=== PATIENT | female | born 1995 | race Caucasian/White ===

== ENCOUNTER 2017-09-11 15:26 | Observation (INO) | payer MEDICAID ==
[2017-09-11 15:33] VITALS: BMI 23.9
[2017-09-11 17:10] LABS: #Eosinphils 0.1 thou/uL (0.0-0.7); #Lymphocytes 3.2 thou/uL (1.20-3.40); #Monocytes 0.9 thou/uL (0.11-0.59); #Neutrophils 13.8 thou/uL (1.40-6.50); %Basophils 0.3 % (0.0-1.0); %Eosinophils 0.6 % (0.0-10.0); %Lymphocytes 17.7 % (21.0-51.0); %Monocytes 5.1 % (0.0-10.0); %Neutrophils 76.4 % (42.0-75.0); Hemoglobin 10.9 g/dL (12.0-16.0); Mean Corpuscular HGB CONC 34.4 g/dL (32.0-36.0); Mean Corpuscular Hemoglobin 31.1 pg (27.0-31.0); Mean Corpuscular Volume 90.5 fl (81.0-99.0); Mean Platelet Volume 6.7 fL (7.4-10.4); Platelet Count 321 thou/uL (130-400); Red Blood Cell (RBC) Count 3.51 mill/uL (4.20-5.40)
--- NOTE | 2017-09-11 17:28 | ULT ---
BILATERAL RENAL ULTRASOUND: Date: 09/11/17 HISTORY: 19-week patient. 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 Left flank pain. COMPARISON: None. TECHNIQUE: Sagittal and transverse imaging of the kidneys performed. FINDINGS: Right kidney has a grossly normal echotexture, without hydronephrosis. Right kidney measures 5.0 x 4. 4 x 8.5 cm. Left kidney has a normal cortical echotexture. No hydronephrosis. Left kidney measures 6.1 x 5.6 x 11 .9 cm. Urinary bladder has a normal mucosal appearance. No mucosal abnormality. Bladder volume is 22 mL. Bilateral ureteral jets are identified. IMPRESSION: No evidence of hydronephrosis. POS: [facility]
[2017-09-11] MEDS ORDERED: Lactated Ringer's 1,000 ML IV SCH ×2 (17:30)
--- NOTE | 2017-09-11 17:37 | ULT ---
OB ULTRASOUND: Date: 09/11/17 PROVIDED CLINICAL HISTORY: Size and dates. FINDINGS: A single liver intrauterine gestation is documented in breech presentation with estimated gestational age based on today's examination of 19 weeks/5 days. Estimated weight is 317, +/- 47 gm. The p lacenta is posterior in location without evidence for previa. The cervix measures about 3.0 cm. anatomic survey demonstrates a normal appearance of the head, cerebellum, posterior fossa, fou r chamber heart, stomach, situs, kidneys, umbilical cord and cord insertion, urinary bladder, spine, and upper/lower extremities. heart rate of 131 beats/minute is documented. LEONARDO is 15. Biometry: BPD: 20 weeks/1 day HC: 20 weeks/0 days AC: 20 weeks/0 days FL: 19 weeks/4 days IMPRESSION: Single live intrauterine gestation as described above. Cervical length as above. POS: [facility]
[2017-09-11 17:57] LABS: HBSAg Index 0.29 S/CO (0-0.99); HIV (1/2) Antibody/Antigen Non-Reactive (NonReactive); Hep B Surf Ag Non-Reactive S/CO (NonReactive)
[2017-09-11 18:01] LABS: Syphilis Antibody Nonreactive (Nonreactive); Syphilis Antibody Index 0.03 S/CO (<1.00 Non-Reactive)
[2017-09-11 18:18] LABS: Bilirubin Negative (Negative); Blood, Urine Moderate (Negative); Clarity CLEAR (Clear); Glucose, Urine (Dipstick) Negative (Negative); Leukocyte Negative (Negative); Nitrite Negative (Negative); Protein, Urine (Dipstick) Negative (Neg-Trace); Specific Gravity, Urine 1.013 (1.002-1.036); Urobilinogen 0.2 mg/dL (0.2-1.0); pH, Urine 6.5 (5.0-9.0)
[2017-09-11 18:20] LABS: Bacteria/HPF None Seen HPF (None Seen); Hyaline Casts/LPF 0-3 HYALINE CAST LPF (0-3 Hyaline); Pathc Cast-AUWi Flag 0.87 (0-2.49); Squamous Epithelial 0-3 HPF (0-3); WBC/HPF 0-3 HPF (0-3)
[2017-09-11 18:33] LABS: Renal Epithelial None Seen HPF (0-3); Transitional Epithelial 0-3 HPF (0-3)
[2017-09-11] MEDS ORDERED: Calcium Carbonate 500 MG ChewTAB PO PRN (20:05)
[2017-09-11] MEDS ORDERED: Acetaminophen 325 MG TAB PO PRN (20:05)
[2017-09-11] MEDS ORDERED: cefTRIAXone\\ROCEPHIN 1 GM in Sodium Chloride 0.9% 100 ML IVPB SCH (21:00)
--- NOTE | 2017-09-11 21:50 | HP ---
DATE OF ADMISSION: 09/11/2017 TIME OF ADMISSION: 1850 hours. REASON FOR ADMISSION: Suspected left nephrolithiasis at 20 weeks gestation with possible early UTI. HISTORY OF PRESENT ILLNESS: Ms. Kearns is a 21-year-old 6, para 0, AB 5 at approximately 20 weeks. She just moved to the area from [facility]. She received her antepartum care out there. She reports onset today of left lower abdominal pain. She stated it was very similar to previous k idney stone she had a little more frontal rather than flank. She denies dysuria, gross hematuria, ru pture of membranes. She has had mild nausea. She currently rates her pain an 8/10. [employer] MEMBER HISTORY: Denies history of STDs or dysplasia. She reports that she has had 5 miscarriage s. All of them in the first trimester, none with D&C, several due to abdominal trauma. PAST MEDICAL HISTORY: Recurrent nephrolithiasis bilaterally with stent, some with shock wave lithotr ipsy. 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 Cholecystectomy. Of note, the patient has not had appendectomy. ALLERGIES: TRAMADOL. MEDICATIONS: vitamins. SOCIAL HISTORY: Tobacco prior to . Denies tobacco, alcohol, or IV drug use during pregnanc y. PHYSICAL EXAMINATION: GENERAL: White female, does not appear to be in any distress that she claims with her pain score. VITAL SIGNS: Her temperature is 99.1, pulse 92, respirations 18, blood pressure 110/72. HEENT: Within normal limits. LUNGS: Clear to auscultation bilaterally. HEART: Regular rate and rhythm. ABDOMEN: She has discomfort in the left mid quadrants on exam. She has no rebound or guarding. She has no significant CVA tenderness noted. Vulva is without lesions. Vaginal exam was deferred. EXTREMITIES: Without clubbing, cyanosis or edema. LABORATORY AND X-RAY FINDINGS: Clean catch UA was negative in [facility]; however, was repeated at [place] and it was 80+ ketones, moderate blood and 11-20 rbc's per high powered field with no wbc's, squamous epithelium, transitional cell or bacteria. HIV, RPR and hepatitis B are all negative . White count is 18,000 with 76% neutrophils, 17% lymphs, hematocrit of 32%, normal platelet count. Blood type is A positive, antibody negative. ultrasound was performed which revealed a breech presentation. Cervical length of 3 cm and a composite gestational age of 19 weeks and 5 days. Anne Marie l ultrasound reveals no hydronephrosis, left or right. Bilateral ureteral jets identified. IMPRESSION: Suspect a small ureteral stone without obstruction. CBC consistent with possible mild e liana pyelonephritis. PLAN: Urine culture, observation, IV hydration, Rocephin 1 gram q.12 hours, analgesics as needed.
[2017-09-11] MEDS: Promethazine HCl 25 MG/ML VIAL IM PRN (22:27)
[2017-09-11] MEDS: Butorphanol Tartrate 1 MG/ML VIAL SLOW IVP PRN (22:30)
[2017-09-11] MEDS: Sodium Chloride 0.9% 1,000 ML IV SCH (22:35)
[2017-09-12] MEDS: Sodium Chloride 0.9% 1,000 ML IV SCH (04:12)
[2017-09-12] MEDS: Butorphanol Tartrate 1 MG/ML VIAL SLOW IVP PRN ×2 (04:15→07:35)
[2017-09-12] MEDS: Promethazine HCl 25 MG/ML VIAL IM PRN (04:15)
[2017-09-12 05:32] LABS: #Eosinphils 0.1 thou/uL (0.0-0.7); #Lymphocytes 3.1 thou/uL (1.20-3.40); #Monocytes 0.8 thou/uL (0.11-0.59); %Basophils 0.3 % (0.0-1.0); %Lymphocytes 21.7 % (21.0-51.0); %Monocytes 5.9 % (0.0-10.0); %Neutrophils 71.1 % (42.0-75.0); Hemoglobin 10.1 g/dL (12.0-16.0); Mean Corpuscular HGB CONC 33.2 g/dL (32.0-36.0); Mean Corpuscular Hemoglobin 30.3 pg (27.0-31.0); Mean Corpuscular Volume 91.2 fl (81.0-99.0); Platelet Count 327 thou/uL (130-400); Red Blood Cell (RBC) Count 3.34 mill/uL (4.20-5.40); White Blood Cell (WBC) Count 14.1 thou/uL (4.8-10.8)
--- NOTE | 2017-09-12 07:36 | DIS ---
HOSPITAL COURSE: Ms. Kearns was admitted on the with pain in the left lower quadrant consistent with nephrolithiasis. The patient has a long history of recurrent nephrolithiasis. Fem cath UA rev ealed 11-20 RBCs per high power field without other findings. The patient was noted to have an eleva nadja white count of 18,000, so concern was for possible early pyelonephritis. She was admitted and wa s noted on ultrasound to have bilateral ureteral jets and no significant hydronephrosis. Her pain wa s well controlled on the floor down to 4 or 5 between doses of medication. This morning she is resti ng well with an active fetus. After discussing options we will discharge the patient home on Tylenol 3 and Keflex 500 p.o. t.i.d. x5 more days. The patient's urine culture is pending. She will follow up for care with either the Clinic or the [facility]. ER precautions for worsening pain, fever were given to the patient.
[2017-09-12 08:56] VITALS: BP 108/65; TEMP 98.6
== END 2017-09-12 09:20 | disposition home or self-care (01) ==
LOC: L&D/OP 15:26 → 3SW 20:21
PROVIDERS: ADMIT Obstetrics & Gynecology; ATTEND Obstetrics & Gynecology
DX: O99.89 Other specified diseases and conditions complicating pregnancy, childbirth and the puerperium (principal); R10.32 Left lower quadrant pain; Z87.442 Personal history of urinary calculi; Z88.5 Allergy status to narcotic agent; Z3A.20 20 weeks gestation of pregnancy
CPT/HCPCS: 36415; 51701; 76770; 76805; 85025; 86762; 86780; 86850; 86900; 86901; 87086; 87340; 87389; 96360; 96361; 96365; 96372; 96375; 96376; 99285; G0378; J0595; J0696; J2550; J7050

== ENCOUNTER 2017-10-23 20:57 | Day surgery (SDC) | payer MEDICAID, OTHER ==
--- NOTE | 2017-10-23 21:36 | PDOC.LDHP ---
Labor and Delivery H&P Chief complaint: other (Back pain, pelvic pressure) HPI: 22 y/o at 25w1d, patient of Dr. Chambers, presents with low back pain, pelvic pressure, and occasional intermittent sharp abdominal pains. Denies VB, LOF, or decreased FM. Has only had a small BM in the last week. ROS neg for HEENT, cv, pulm, gi, gu, neuro, psych, skin, musculoskeletal, or constitutional symptoms other than mentioned above. 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 History of kidney stones Current medications: pre- vitamins Previous surgical history: other (right nephrectomy) Allergies/Adverse Reactions: Allergies Allergy/AdvReac Type Severity Reaction Status Date / Time tramadol Allergy Uncoded 09/11/17 15:29 Social history: none - Physical Exam Vital signs reviewed and normal: yes General: NAD, other (occasionally appears uncomfortable but normal in between) Lungs: nonlabored breathing Abdomen: gravid (soft, no guarding or rebound) Extremeties: no edema FHT: category 1 (150s, mod variability) [place] contractions every: irritability - Vaginal Exam cm dilated: 0 (firm, posterior) Effacement: 0% Station: -3 - Assessment 22 y/o G1 at 25w1d with no e/o PTL. FFN neg. Pain possibly due to constipation or gas. status reassuring. - Plan -: Given 1 dose morphine 2mg, simethicone, and 1L IV fluids and pain has resolved. D/c home with precautions. Discussed Miralax or milk of magnesia for constipation. Follow up with Dr. Chambers as scheduled.
[2017-10-23 21:37] VITALS: BP 118/73; TEMP 98.5; BMI 24.8
[2017-10-23] MEDS ORDERED: Morphine 4 MG/ML VIAL SLOW IVP SCH (21:49)
[2017-10-23 21:59] LABS: Bilirubin Negative (Negative); Blood, Urine Negative (Negative); Clarity CLEAR (Clear); Glucose, Urine (Dipstick) Negative (Negative); Leukocyte Trace (Negative); Nitrite Negative (Negative); Protein, Urine (Dipstick) Negative (Neg-Trace); Specific Gravity, Urine 1.027 (1.002-1.036); pH, Urine 5.5 (5.0-9.0)
[2017-10-23 22:00] LABS: Bacteria/HPF None Seen HPF (None Seen); RBC/HPF 0-3 HPF (0-3)
[2017-10-23] MEDS ORDERED: Lactated Ringer's 1,000 ML IV SCH (22:00)
[2017-10-23] MEDS ORDERED: Simethicone Chewable 80 MG TAB PO PRN (22:02)
[2017-10-23 22:03] LABS: Pathc Cast-AUWi Flag 2.76 (0-2.49)
[2017-10-23 22:07] LABS: Amphetamine Not Detected (NotDetected); Barbiturates Screen Not Detected (NotDetected); Benzodiazepine Screen Not Detected (NotDetected); Cocaine Metabolite Screen Not Detected (NotDetected); Medtox Control Line Valid? VALID (VALID); Medtox Reader # READER 4; Methadone Not Detected (NotDetected); Methamphetamine Not Detected (NotDetected); Opiate Screen Not Detected (NotDetected); Oxycodone Screen Not Detected (NotDetected); Phencyclidine (PCP) Not Detected (NotDetected); THC/Cannabinoid Screen Not Detected (NotDetected); Tricyclic Screen Not Detected (NotDetected)
[2017-10-23 22:14] LABS: Hyaline Casts/LPF 0-3 HYALINE CAST LPF (0-3 Hyaline)
[2017-10-23 22:19] LABS: FFN Internal QC Analyzer PASS (PASS); FFN Internal QC Cassette PASS (PASS); Fetal Fibronectin Negative (Negative)
== END 2017-10-23 23:10 | disposition home health service (06) ==
LOC: L&D/OP 20:57
PROVIDERS: ATTEND Family Medicine
DX: O99.89 Other specified diseases and conditions complicating pregnancy, childbirth and the puerperium (principal); M54.9 Dorsalgia, unspecified; R10.2 Pelvic and perineal pain; Z88.5 Allergy status to narcotic agent; Z3A.25 25 weeks gestation of pregnancy
CPT/HCPCS: 51701; 80306; 81001; 82731; 96360; 96375; 99284; J2270

== ENCOUNTER 2017-12-08 14:39 | Day surgery (SDC) | payer OTHER ==
[2017-12-08 15:22] VITALS: BMI 27.1
[2017-12-08 16:11] LABS: Bilirubin Negative (Negative); Blood, Urine Negative (Negative); Clarity TURBID (Clear); Glucose, Urine (Dipstick) Negative (Negative); Leukocyte Moderate (Negative); Nitrite Negative (Negative); Protein, Urine (Dipstick) Trace mg/dL (Neg-Trace); Specific Gravity, Urine 1.019 (1.002-1.036)
[2017-12-08 16:13] LABS: Bacteria/HPF 1+ HPF (None Seen); Hyaline Casts/LPF 4-6 HYALINE CAST LPF (0-3 Hyaline)
[2017-12-08 16:14] LABS: RBC/HPF 0-3 HPF (0-3); Renal Epithelial None Seen HPF (0-3); Transitional Epithelial NONE SEEN HPF (0-3)
--- NOTE | 2017-12-08 21:24 | SS ---
DATE OF EVALUATION: 12/08/2017 LABOR AND DELIVERY TRIAGE EVALUATION REGULAR PHYSICIAN: Santos Chambers M.D. EVALUATING PHYSICIAN: Omid Levi M.D. CHIEF COMPLAINT: Lower abdominal discomfort, passage of clot from vagina. HISTORY OF PRESENT ILLNESS: Ms. Kearns is a 22-year-old white G1, P0 with an estimated date of confinement of 02/04/2018 who presents complaining of lower abdominal discomfort with what she describes as a burning sensation. She states that she also passed what she believed to be as a pea-sized blood clot earlier today. She denies ruptured membranes or decreased movement. Her care has been with Dr. Chambers and has been reportedly without complications. No records are available for my review. PAST MEDICAL HISTORY: None. PAST SURGICAL HISTORY: Partial removal of left kidney and gallbladder. CURRENT MEDICATIONS: vitamins and Phenergan. ALLERGIES: TRAMADOL, which she states gives her rash. SOCIAL HISTORY: She denies tobacco, alcohol or drug use. FAMILY HISTORY: Unremarkable. REVIEW OF SYSTEMS: She denies nausea, vomiting, fever, chills or decreased movement. PHYSICAL EXAMINATION: VITAL SIGNS: Stable and she is afebrile. GENERAL: She is in no acute distress. ABDOMEN: Soft, nontender and gravid. Speculum examination shows copious vaginal discharge, but the cervix is closed. heart rate tracing is reassuring. There are no decelerations. No significant coordinated uterine activity is seen. LABORATORY DATA: Urinalysis returned showing a specific gravity of 1.019 with moderate leukocyte esterase, negative blood, negative ketones, negative glucose. Microscopic does show squamous cells, but there is 11-20 white blood cells, 0-3 red cells and 1+ bacteria. [employer]ER-3 panel returns positive for yeast. ASSESSMENT: 1. 31-5/7-week intrauterine . 2. Suspected urinary tract infection. 3. Yeast vaginitis. PLAN: At this time, the patient will be discharged to home. She was given complete labor precautions. A prescription for Diflucan 150 mg 1 tablet x1 is given along with Keflex 500 mg 1 p.o. 4 times a day for a week. Urine culture has been ordered. She voices understanding of her discharge instructions and is sent home in good condition. [facility] CENTERDavid
== END 2017-12-08 18:15 ==
LOC: L&D/OP 14:39
PROVIDERS: ATTEND Family Medicine
DX: O23.593 Infection of other part of genital tract in pregnancy, third trimester (principal); Z3A.31 31 weeks gestation of pregnancy; Z88.5 Allergy status to narcotic agent
CPT/HCPCS: 81003; 81015; 87086; 87480; 87510; 87660; 99285

== ENCOUNTER 2018-01-17 16:18 | Inpatient (IN) | payer OTHER ==
[~2018-01-17 16:18] MED LIST: Bupivacaine HCl 0.5%/Epinephrine 1:200,000/PF 30 ml Vial ONE; Lidocaine 2% MPF 10 ML AMP (For Epidural Use) ONE
[2018-01-17] MEDS ORDERED: Carboprost 250 MCG/ML AMP IM PRN (22:19)
[2018-01-17] MEDS ORDERED: Lidocaine 1% (PF) 30 ML VIAL SC PRN (22:19)
[2018-01-17] MEDS ORDERED: Butorphanol Tartrate 1 MG/ML VIAL SLOW IVP PRN (22:19)
[2018-01-17] MEDS ORDERED: Methylergonovine 0.2 MG/ML VIAL IM PRN (22:19)
[2018-01-17] MEDS ORDERED: Ibuprofen 800 MG TAB PO PRN (22:19)
[2018-01-17] MEDS ORDERED: NS w/ Oxytocin 10 units 500 ML IV SCH ×2 (22:19)
[2018-01-17] MEDS ORDERED: Ondansetron HCl/PF 4 MG/2 ML Vial IVP PRN (22:19)
[2018-01-17] MEDS ORDERED: HYDROcodone/Acetaminophen 5/325 mg Tablet PO PRN (22:19)
[2018-01-17] MEDS ORDERED: Misoprostol 200 MCG TAB PR PRN (22:19)
[2018-01-17] MEDS ORDERED: Diphenoxylate HCl/Atropine Tablet PO PRN (22:19)
[2018-01-17] MEDS ORDERED: NS / Oxytocin 40 units/1000ml 1,000 ML IV PRN (22:19)
[2018-01-17 22:55] VITALS: BMI 28.7
[2018-01-17 23:55] LABS: Hemoglobin 8.6 g/dL (12.0-16.0); Mean Corpuscular HGB CONC 31.5 g/dL (32.0-36.0); Mean Corpuscular Hemoglobin 25.6 pg (27.0-31.0); Mean Corpuscular Volume 81.2 fL (78.0-98.0); Mean Platelet Volume 8.5 fL (7.4-10.4); Platelet Count 327 thou/uL (130-400); RBC Distribution Width 15.7 % (11.5-14.5); Red Blood Cell (RBC) Count 3.36 mill/uL (4.20-5.40); White Blood Cell (WBC) Count 19.2 thou/uL (4.8-10.8)
[2018-01-18] MEDS: Misoprostol 100 MCG TAB PO SCH ×3 (00:02→13:36)
[2018-01-18] MEDS: Lactated Ringer's 1,000 ML IV SCH ×3 (00:02→11:55)
[2018-01-18 00:33] LABS: HBSAg Index 0.21 S/CO (0-0.99); Hep B Surf Ag Non-Reactive S/CO (NonReactive); Syphilis Antibody Nonreactive (Nonreactive); Syphilis Antibody Index 0.03 S/CO (<1.00 Non-Reactive)
[2018-01-18] MEDS ORDERED: DISCONTINUE ALL PREVIOUS NARCOTICS FS SCH (10:00)
[2018-01-18] MEDS ORDERED: Bupivacaine 0.5% 10 ML VIAL ONE (11:29)
[2018-01-18] MEDS ORDERED: Fentanyl 100 MCG/2 ML VIAL ONE ×3 (11:29→22:42)
[2018-01-18] MEDS: Bupivacaine 0.5% 20 ML, fentaNYL Citrate/PF 400 MCG in Sodium Chloride 0.9% 72 ML EPIDURAL SCH ×2 (11:55→18:19)
[2018-01-18] MEDS ORDERED: ePHEDrine/0.9% NaCl/PF SYRINGE 50 mg/10 ml SLOW IVP PRN (11:58)
[2018-01-18] MEDS ORDERED: Bupivacaine 0.25% 10 ML VIAL EPIDURAL ONE (11:58)
[2018-01-18] MEDS ORDERED: Eucerin (Mineral Oil/Petrolatum,White) 30 gm Jar TOP PRN (11:58)
[2018-01-18] MEDS ORDERED: Naloxone HCl 0.4 mg/ml Vial IVP PRN ×2 (11:58)
[2018-01-18] MEDS ORDERED: diphenhydrAMINE 50 MG/ML VIAL IVP PRN (11:58)
[2018-01-18] MEDS ORDERED: Lactated Ringer's 500 ML IV PRN (11:58)
[2018-01-18] MEDS ORDERED: Ondansetron HCl/PF 4 MG/2 ML Vial IVP PRN (11:58)
[2018-01-18] MEDS ORDERED: Promethazine HCl 25 MG/ML VIAL IM PRN (11:58)
[2018-01-18] MEDS ORDERED: Acetaminophen 325 MG TAB PO PRN (11:58)
[2018-01-18] MEDS ORDERED: Fentanyl 100 MCG/2 ML VIAL I-THECAL ONE (11:58)
[2018-01-18] MEDS ORDERED: Communication Order-Pharmacy FS SCH (12:00)
[2018-01-18] MEDS ORDERED: fentaNYL Citrate/PF 400 MCG, Bupivacaine 0.5% 20 ML in Sodium Chloride 0.9% 72 ML EPIDURAL SCH (12:00)
[2018-01-18] MEDS ORDERED: Lidocaine HCl/Epinephrine 5 ML AMPUL IJ ONE (13:04)
[2018-01-18] MEDS ORDERED: Dexamethasone 20 MG/5 ML VIAL ONE (13:38)
[2018-01-18] MEDS ORDERED: Lidocaine 2% MPF 10 ML AMP (For Epidural Use) ONE ×2 (13:38→22:18)
[2018-01-18] MEDS ORDERED: Ondansetron HCl/PF 4 MG/2 ML Vial ONE ×2 (13:38→22:17)
[2018-01-18] MEDS ORDERED: Misoprostol 200 MCG TAB ONE ×2 (19:12→23:02)
[2018-01-18] MEDS ORDERED: CEFAZOLIN/Water 2 GM/20 ML SYRINGE ONE (22:06)
[2018-01-18] MEDS ORDERED: Morphine PF 1 MG/ML SYR ONE (22:16)
[2018-01-18] MEDS ORDERED: Oxytocin 10 UNITS/ML VIAL ONE (22:17)
[2018-01-18] MEDS ORDERED: Dexamethasone 4 mg/ml Vial ONE (22:17)
[2018-01-18] MEDS ORDERED: Ketorolac Tromethamine 30 MG/ML VIAL ONE (22:17)
[2018-01-18] MEDS ORDERED: PHENYLEPHRINE-NS 100 MCG/ML 10 ML SYRINGE ONE (22:17)
[2018-01-18] MEDS ORDERED: Bupivacaine 0.25% HCL 30 ML VIAL ONE (22:17)
[2018-01-18] MEDS ORDERED: diphenhydrAMINE 50 MG/ML VIAL ONE (22:17)
[2018-01-18] MEDS ORDERED: PROPOFOL 20 ML ONE (22:43)
[2018-01-18] MEDS ORDERED: Succinylcholine Chloride 20 MG/ML 10 ml SYRINGE FS ONE (22:43)
[2018-01-18] MEDS ORDERED: Ketamine 50 MG/ML VIAL ONE (22:47)
[2018-01-18] MEDS ORDERED: Methylergonovine 0.2 MG/ML VIAL ONE ×2 (22:57→23:00)
[2018-01-18] MEDS ORDERED: Midazolam HCl 2 mg/2 ml Vial ONE (23:09)
[2018-01-18 23:12] LABS: Actual Bicarbonate (HCO3a) 22.6 mEq/L (22-28)
[2018-01-18] MEDS ORDERED: Carboprost 250 MCG/ML AMP ONE (23:25)
[2018-01-18] MEDS ORDERED: metroNIDAZOLE 500 MG in Premix Bag 1 BAG IVPB SCH (23:45)
[2018-01-18] MEDS ORDERED: Tranexamic Acid 1,000 MG in Sodium Chloride 0.9% 250 ML 250 ML IVPB SCH (23:59)
[2018-01-19] MEDS ORDERED: Promethazine HCl 25 MG/ML VIAL IM PRN (00:04)
[2018-01-19] MEDS ORDERED: diphenhydrAMINE 50 MG/ML VIAL IVP PRN (00:04)
[2018-01-19] MEDS ORDERED: Ondansetron HCl/PF 4 MG/2 ML Vial IVP PRN ×3 (00:04→00:07)
[2018-01-19] MEDS ORDERED: Promethazine HCl 25 MG SUPP PR PRN (00:04)
[2018-01-19] MEDS ORDERED: Naloxone HCl 0.4 mg/ml Vial IV PRN (00:04)
[2018-01-19] MEDS ORDERED: Hydrocerin (Eucerin) Cream 120 gm Jar TOP PRN (00:04)
[2018-01-19] MEDS ORDERED: Naloxone HCl 0.4 mg/ml Vial IVP PRN ×2 (00:04)
[2018-01-19] MEDS ORDERED: diphenhydrAMINE 25 MG CAP PO PRN (00:07)
[2018-01-19] MEDS ORDERED: Bisacodyl 10 MG SUPP PR PRN (00:07)
[2018-01-19] MEDS ORDERED: Lanolin Ointment 7 GM TUBE TOP PRN (00:07)
[2018-01-19] MEDS ORDERED: Meperidine HCl/PF 25 MG/ML VIAL ONE (00:09)
[2018-01-19] MEDS: Carboprost 250 MCG/ML AMP ONE (00:14)
[2018-01-19] MEDS: Methylergonovine 0.2 MG/ML VIAL ONE (00:14)
[2018-01-19] MEDS ORDERED: Meperidine HCl/PF 25 MG/ML VIAL SLOW IVP SCH (00:15)
[2018-01-19] MEDS ORDERED: Communication Order-Pharmacy FS SCH (00:15)
[2018-01-19] MEDS ORDERED: hydrALAZINE 20 MG/ML VIAL SLOW IVP PRN (00:19)
[2018-01-19] MEDS ORDERED: Lactated Ringer's 1,000 ML IV SCH (00:30)
[2018-01-19] MEDS ORDERED: NS / Oxytocin 40 units/1000ml 1,000 ML IV SCH (00:45)
[2018-01-19 01:32] LABS: Hemoglobin 10.8 g/dL (12.0-16.0)
[2018-01-19] MEDS: Ketorolac Tromethamine 30 MG/ML VIAL IVP PRN ×3 (02:47→20:28)
[2018-01-19] MEDS: Morphine 4 MG/ML VIAL SLOW IVP PRN ×2 (05:26→12:05)
[2018-01-19] MEDS: CEFAZOLIN/Water 2 GM/20 ML SYRINGE SLOW IVP SCH ×3 (05:40→22:04)
[2018-01-19] MEDS ORDERED: CEFAZOLIN 2 GM in Sodium Chloride 0.9% 100 ML IVPB SCH (06:00)
[2018-01-19 06:11] LABS: Mean Corpuscular HGB CONC 33.3 g/dL (32.0-36.0); Mean Corpuscular Hemoglobin 27.4 pg (27.0-31.0); Mean Corpuscular Volume 82.3 fL (78.0-98.0); Mean Platelet Volume 8.4 fL (7.4-10.4); Platelet Count 286 thou/uL (130-400); RBC Distribution Width 15.8 % (11.5-14.5); Red Blood Cell (RBC) Count 3.27 mill/uL (4.20-5.40); White Blood Cell (WBC) Count 31.8 thou/uL (4.8-10.8)
[2018-01-19] MEDS: Ferrous Sulfate 325 MG TAB PO SCH ×2 (08:09→18:12)
[2018-01-19] MEDS: Prenatal Vitamin 1 TAB PO SCH (08:09)
[2018-01-19] MEDS: Docusate Calcium (SURFAK) 240 MG CAP PO SCH ×2 (08:10→20:29)
[2018-01-19] MEDS: metroNIDAZOLE 500 MG in Premix Bag 1 BAG IVPB SCH ×3 (08:37→22:24)
--- NOTE | 2018-01-19 10:33 | PDOC.PP ---
Post Progress Note Post Day #: 1 Subjective: 22 yo G 1 now P1 PP day s/p pLTCS 2/2 arrest of 2nd stage of labor. Delivery complicated by PPH and uterine atony. Pt received 2U PRBCs. Currently reports she is feeling well but has some soreness around incision. She is tolerating PO and is currently on clear liquids. Patterson remains in place and good UOP. Bakri balloon drained approx 65cc since last evening. Denies cp, sob, nv. Reports cramping/ctx type abdominal pain and mild pain around the incision site. Controlled with morphine and toradol. PO intake tolerated: yes Flatus: yes Ambulation: no Vital Signs (12 hours) Temp Pulse Resp BP 01/19/18 02:09 99.9 F H 106 H 16 146/93 H 01/19/18 01:20 98.5 F 95 16 133/93 H Weight Weight 71.214 kg - Physical Examination General: NAD Cardiovascular: no m/r/g, RRR Respiratory: clear to auscultation bilaterally, non-labored breathing Abdominal: + bowel sounds, no distention, appropriately TTP (cramping/ctx type abdominal pain and incisional site soreness.) Fundus firm & at: Bakri balloon in place Extremities: negative homans (B) (No edema b/l) Skin: CS incision dry & intact, no rash Neurological: no gross focal deficits Psychiatric: normal affect Result Diagrams: 01/19/18 04:55 Additional Labs: Post Labs Blood Type A POSITIVE 01/17/18 23:35 Hep Bs Antigen Non-Reactive S/CO (NonReactive) 01/17/18 23:10 (1) Status post primary low transverse section Code(s): Z98.891 - HISTORY OF UTERINE SCAR FROM PREVIOUS SURGERY Status: Acute (2) hemorrhage Code(s): O72.1 - OTHER IMMEDIATE HEMORRHAGE Status: Acute Qualifiers: hemorrhage type: unspecified Qualified Code(s): O72.1 - Other immediate hemorrhage (3) Blood transfusion during current hospitalization Code(s): [id number] - Status: Acute - Assessment/Plan 1) s/p pLTCS 2/2 arrest of 2nd stage of labor - pt reports minimal pain, she is tolerating PO, incision clean dry and intact patterson remains in place, passing flatus, no ambulation yet - cont routine post op care, will likely advance diet this afternoon. Patterson to remain in place while Bakri balloon remains. - pain well controlled on current regimen 2) PPH: - pt received hemabate x2, methergine, TXA and Bakri balloon was placed intraoperatively 2/2 uterine atony. - Bakri balloon has had approx 65cc since placement and remains in place. Will check output this afternoon and assess for possible removal - Pt received 2U PRBCs intra-operatively, currently her vitals are stable and Hgb is 9.0. She is not tachycardic or hypotensive. She is not edematous and lungs are cta-bl, no concern for TRALI or TACO. Will cont to monitor. 3) s/p transfusion: - see #2, monitor - Hgb stable
[2018-01-19] MEDS ORDERED: Meperidine HCl/PF 25 MG/ML VIAL IM PRN (12:15)
[2018-01-19] MEDS ORDERED: Diphenoxylate HCl/Atropine Tablet PO PRN ×2 (12:15→18:00)
[2018-01-19] MEDS ORDERED: HYDROcodone/Acetaminophen 5/325 mg Tablet PO PRN (12:15)
[2018-01-19] MEDS: HYDROcodone/Acetaminophen 5/325 mg Tablet PO PRN ×2 (14:21→18:17)
[2018-01-19] MEDS: Lactated Ringer's 1,000 ML IV SCH (17:43)
[2018-01-19] MEDS: Simethicone Chewable 80 MG TAB PO PRN (22:04)
[2018-01-20] MEDS: Lactated Ringer's 1,000 ML IV SCH ×4 (00:29→22:45)
[2018-01-20] MEDS: HYDROcodone/Acetaminophen 5/325 mg Tablet PO PRN ×3 (03:41→11:24)
[2018-01-20] MEDS: CEFAZOLIN/Water 2 GM/20 ML SYRINGE SLOW IVP SCH ×3 (06:01→21:39)
[2018-01-20] MEDS: metroNIDAZOLE 500 MG in Premix Bag 1 BAG IVPB SCH ×3 (06:07→21:45)
[2018-01-20] MEDS: Ibuprofen 800 MG TAB PO SCH ×3 (06:13→21:39)
[2018-01-20] MEDS: Prenatal Vitamin 1 TAB PO SCH (09:11)
[2018-01-20] MEDS: Docusate Calcium (SURFAK) 240 MG CAP PO SCH ×2 (09:11→21:39)
[2018-01-20] MEDS: Ferrous Sulfate 325 MG TAB PO SCH ×2 (09:11→17:17)
[2018-01-20] MEDS: Simethicone Chewable 80 MG TAB PO PRN (11:25)
[2018-01-20] MEDS ORDERED: HYDROcodone/Acetaminophen 7.5/325 mg Tablet PO PRN (13:24)
[2018-01-20] MEDS: HYDROcodone/Acetaminophen 7.5/325 mg Tablet PO PRN ×2 (15:28→19:38)
[2018-01-20 21:02] VITALS: TEMP 98.1
[2018-01-21] MEDS: HYDROcodone/Acetaminophen 7.5/325 mg Tablet PO PRN ×4 (00:43→13:34)
[2018-01-21] MEDS: Simethicone Chewable 80 MG TAB PO PRN ×2 (00:43→08:54)
[2018-01-21] MEDS: Ibuprofen 800 MG TAB PO SCH ×2 (05:47→14:03)
[2018-01-21] MEDS: CEFAZOLIN/Water 2 GM/20 ML SYRINGE SLOW IVP SCH ×2 (05:48→14:40)
[2018-01-21] MEDS: metroNIDAZOLE 500 MG in Premix Bag 1 BAG IVPB SCH ×2 (05:58→13:32)
[2018-01-21] MEDS: Lactated Ringer's 1,000 ML IV SCH (06:31)
[2018-01-21 08:21] VITALS: BP 107/68
[2018-01-21] MEDS: Ferrous Sulfate 325 MG TAB PO SCH (08:53)
[2018-01-21] MEDS: Prenatal Vitamin 1 TAB PO SCH (08:53)
[2018-01-21] MEDS: Docusate Calcium (SURFAK) 240 MG CAP PO SCH (08:54)
== END 2018-01-21 15:19 | disposition home or self-care (01) | DRG 765 ==
LOC: L&D 22:01 → 3SW 01-19 17:37
PROVIDERS: ADMIT Family Medicine; ATTEND Family Medicine
PROC: 10D00Z1 Extraction of Products of Conception, Low, Open Approach (ICD-10-PCS; principal; 2018-01-18)
PROC: 30233N1 Transfusion of Nonautologous Red Blood Cells into Peripheral Vein, Percutaneous Approach (ICD-10-PCS; 2018-01-18)
PROC: 3E033VJ Introduction of Other Hormone into Peripheral Vein, Percutaneous Approach (ICD-10-PCS; 2018-01-18)
DX: O24.424 Gestational diabetes mellitus in childbirth, insulin controlled (principal); O72.1 Other immediate postpartum hemorrhage; O62.0 Primary inadequate contractions; Z3A.36 36 weeks gestation of pregnancy; Z37.0 Single live birth
CPT/HCPCS: 36415; 36416; 36430; 51702; 82805; 85014; 85018; 85027; 86780; 86850; 86900; 86901; 87340; A4216; J0595; J0670; J1100; J1200; J1885; J2001; J2175; J2210; J2250; J2270; J2274; J2310; J2405; J2590; J2704; J3010; J3490; J7050; P9016; P9059; S0020